=== PATIENT | male | born 1970 | race Caucasian/White ===

== ENCOUNTER → 2018-06-15 12:37 | Outpatient (POV) | payer MEDICARE, OTHER, SELFPAY ==
[2018-06-15 13:00] VITALS: BP 149/79; PULSE 87; RESP 18; O2SAT 98
--- NOTE | 2018-06-15 13:55 | HMH.PMCON ---
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 4 times daily [place] 7.5 mg 1 p.o. 4 times daily we will give him 2 months worth of prescriptions and he can picket labor union the third month in the interim. I will follow-up with the patient in 3 months reassess his symptoms at that time. He has been instructed to call the office if he has any issues prior to his next appointment. Dr. Blum has reviewed this note and agrees with this plan of care. This note was dictated using voice recognition software and may contain errors or omissions HPI - Data of Consult Consult date: 06/15/18 Requesting Physician: Portia Feliciano APRN Primary Care Provider: Lisa Crane - Consult Narrative Reason for consult: Back pain History of present illness: Mr. Gordon is a 47 year old male who is transferring care from our [place] clinic. Patient has chronic low back pain with bilateral leg numbness. He is tried and failed chiropractic therapy, physical therapy, massage therapy. Patient is being treated for fibromyalgia along with peripheral neuropathy. He is currently on oxycodone 10 mg 1 p.o. 4 times daily and [place] 7.5 mg 120 4 times daily. His pain score today is a 5 out of 10. He is doing well on his current medication regimen and denies side effects Khoi reviewed and appropriate we will send in for urine drug screen today. He is also on Zanaflex 4 mg 1 p.o. 3 times daily. Patient is currently on CBD oil and doing well with this. CC: Portia Feliciano APRN [facility] History I have reviewed the patient's past medical history: Yes Medical History: Denies:: Diabetes Mellitus Type 1, Diabetes Mellitus Type 2 Other Surgeries: Yes: Appendectomy, Hernia Repair Amputation: No Fractures: No - *Social History Smoking Status: Never smoker Alcohol Intake: never *Occupational Status:: other Housing: house *Travel in the last 8 weeks: None - Psychiatric History Expresses thoughts of harming self/others: None Suicide Plan Description: No Plan Family Hx:: Unable to obtain Review of Systems - Review of Systems ROS General: no recent weight change, no fever, no sleep disturbances Respiratory: no cough, no shortness of air, no recurring pulmonary infections Cardiovascular/Peripheral Vascular: No chest pain, No palpitations, no edema, no shortness of breath. Gastrointestinal: no incontinence, normal bowel movements reported Genitourinary: no incontinence Musculoskeletal: Back pain, leg pain Psychiatric: normal mood/ affect Neurological: [denies weakness in extremities], [denies balance issues] Meds Home Medications Medication Instructions Recorded Confirmed Type Hydrocodone/Acetaminophen 7.5 mg PO QID 06/15/18 06/15/18 History [Hydrocodone-Acetamin 7.5-325] RX: Oxycodone HCl [Oxycodone (IR) 10 mg PO QID 06/15/18 06/15/18 History 10mg Tab] clonazePAM [Clonazepam] 1 mg PO TID PRN 06/15/18 06/15/18 History Objective Vital signs: Pulse Resp BP Pulse Ox 87 18 149/79 H 98 06/15/18 13:00 06/15/18 13:00 06/15/18 13:00 06/15/18 13:00 Narrative: Physical Exam General: Alert and oriented x3, no acute distress, pleasant and cooperative, [on room air] Lungs: Resps E/U, Symmetrical chest expansion, Eyes: PERRL Musculoskeletal: Flexion and extension of lumbar spine somewhat guarded secondary to pain, deep tendon reflexes normal, strength in upper and lower extremities
--- NOTE | 2018-06-15 13:58 | P.CONS_ITS ---
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 4 times daily [place] 7.5 mg 1 p.o. 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 I will follow-up with the patient in 3 months reassess his symptoms at that time. He has been instructed to call the office if he has any issues prior to his next appointment. Dr. Blum has reviewed this note and agrees with this plan of care. This note was dictated using voice recognition software and may contain errors or omissions HPI - Data of Consult Consult date: 06/15/18 Requesting Physician: Portia Feliciano APRN Primary Care Provider: Lisa Crane - Consult Narrative Reason for consult: Back pain History of present illness: Mr. Gordon is a 47 year old male who is transferring care from our [place] clinic. Patient has chronic low back pain with bilateral leg numbness. He is tried and failed chiropractic therapy, physical therapy, massage therapy. Patient is being treated for fibromyalgia along with peripheral neuropathy. He is currently on oxycodone 10 mg 1 p.o. 4 times daily and [place] 7.5 mg 120 4 times daily. His pain score today is a 5 out of 10. He is doing well on his current medication regimen and denies side effects Khoi reviewed and ap propriate we will send in for urine drug screen today. He is also on Zanaflex 4 mg 1 p.o. 3 times daily. Patient is currently on CBD oil and doing well with this. CC: Portia Feliciano APRN [facility] History I have reviewed the patient's past medical history: Yes Medical History: Denies:: Diabetes Mellitus Type 1, Diabetes Mellitus Type 2 Other Surgeries: Yes: Appendectomy, Hernia Repair Amputation: No Fractures: No - *Social History Smoking Status: Never smoker Alcohol Intake: never *Occupational Status:: other Housing: house *Travel in the last 8 weeks: None - Psychiatric History Expresses thoughts of harming self/others: None Suicide Plan Description: No Plan Family Hx:: Unable to obtain Review of Systems - Review of Systems ROS General: no recent weight change, no fever, no sleep disturbances Respiratory: no cough, no shortness of air, no recurring pulmonary infections Cardiovascular/Peripheral Vascular: No chest pain, No palpitations, no edema, no shortness of breath. Gastrointestinal: no incontinence, normal bowel movements reported Genitourinary: no incontinence Musculoskeletal: Back pain, leg pain Psychiatric: normal mood/ affect Neurological: [denies weakness in extremities], [denies balance issues] Meds Home Medications Medication Instructions Recorded Confirmed Type Hydrocodone/Acetaminophen 7.5 mg PO QID 06/15/18 06/15/18 History [Hydrocodone-Acetamin 7.5-325] RX: Oxycodone HCl [Oxycodone (IR) 10 mg PO QID 06/15/18 06/15/18 History 10mg Tab] clonazePAM [Clonazepam] 1 mg PO TID PRN 06/15/18 06/15/18 History
[2018-06-15 19:12] LABS: Amphetamine/Metha Screen,Urine Negative ng/mL (<1000); Barbiturates Screen,Urine Negative ng/mL (<200); Benzodiazepines Screen,Urine Negative ng/mL (<200); Cannabinoid Screen,Urine Positive ng/mL (<50); Cocaine Screen,Urine Negative ng/mL (<300); Methadone Screen,Urine Negative ng/mL (<300); Opiate Screen,Urine Positive ng/mL (<300); Phencyclidine Screen,Urine Negative ng/mL (<25)
[2018-06-20 16:17] LABS: Codeine Negative (Cutoff=100); Hydrocodone Positive (.); Hydromorphone Positive (.); Morphine Negative (Cutoff=100); Oxycodone (GC/MS) 1755 ng/mL (Cutoff=100)
[2018-06-20 18:08] LABS: Opiates Positive (.); Oxymorphone (GC/MS) 2737 ng/mL (Cutoff=100)
== END ==
PROVIDERS: PCP Internal Medicine; Visit Provider Clinical Nurse Specialist Family Health
DX: M79.7 Fibromyalgia (principal); Z79.899 Other long term (current) drug therapy; G62.9 Polyneuropathy, unspecified; M47.816 Spondylosis without myelopathy or radiculopathy, lumbar region
CPT/HCPCS: 80305; 80361; 80365; 99202; G0480

== ENCOUNTER → 2018-08-17 11:47 | Outpatient (CLI) | payer MEDICARE, OTHER, SELFPAY ==
[2018-08-17 13:28] LABS: Amphetamine/Metha Screen,Urine Negative ng/mL (<1000); Barbiturates Screen,Urine Negative ng/mL (<200); Benzodiazepines Screen,Urine Negative ng/mL (<200); Cannabinoid Screen,Urine Negative ng/mL (<50); Cocaine Screen,Urine Negative ng/mL (<300); Methadone Screen,Urine Negative ng/mL (<300); Opiate Screen,Urine Negative ng/mL (<300); Phencyclidine Screen,Urine Negative ng/mL (<25)
[2018-08-25 19:55] LABS: Opiates Negative (Cutoff=100)
== END ==
PROVIDERS: Visit Provider Clinical Nurse Specialist Family Health
DX: Z79.899 Other long term (current) drug therapy (principal)
CPT/HCPCS: 80305; 80361; 80365; G0480

== ENCOUNTER → 2018-09-14 12:58 | Outpatient (POV) | payer MEDICARE, OTHER, SELFPAY ==
[2018-09-14 13:00] VITALS: BP 133/86; PULSE 85; RESP 18; O2SAT 98; BMI 32.5
--- NOTE | 2018-09-14 13:22 | HMH.PAINSOAP ---
[facility] Pain Management SOAP Note Subjective:: Patient is a pleasant 47-year-old white male who presents today for follow-up for medication refills. Patient has a history of degenerative disc disease of lumbar spine with radicular symptoms. He rates his pain a 7 out of 10 today. He says that the medication does help, giving him the ability to at least get out of the bed. The patient says that he was over 300 pounds prior to taking oral medication management. Patient is also taken CBD oil for which he says it has given him a lot of relief with anxiety and enabling him to sleep well. [facility] #[id number] has been reviewed and is appropriate. The patient currently takes oxycodone 10 mg 4 times daily and [place] 7.5 mg 1 p.o. 4 times daily. He denies any side effects to medications. Patient says that the [place] facility has asked him in the past to come off of his pain patient regimen for various procedures. The patient is concerned that this will have an impact on his medication management with the clinic. Review of Systems General: No recent weight changes, no fever, no sleep disturbances Respiratory: No cough, no shortness of air, no recurring pulmonary infections Cardiovascular/peripheral vascular: No chest pain, no palpitations, no edema, no shortness of breath Gastrointestinal: No new onset incontinence, normal bowel movements reported Genitourinary: No new onset incontinence Musculoskeletal: Back pain Psychiatric: Normal mood/affect Neurological: [Denies weakness in extremities], [denies balance issues] Objective:: Physical exam General: Alert and oriented x3, no acute distress, pleasant and cooperative, [on room air] Lungs: Respirations even and unlabored, symmetrical chest expansion Eyes: PERRL Musculoskeletal: Flexion and extension of lumbar spine somewhat guarded secondary to pain, deep tendon reflexes normal, strength in upper and lower extremities [5/5], normal gait noted Neurological: Speech clear, ampoule filler and sealer equal, no gross sensory deficit Assessment:: Degenerative disc disease lumbar spine with lumbar radiculopathy, fibromyalgia, neuropathy Plan:: We will refill the patient's [place] 7.5 mg p.o. 4 times daily and oxycodone 10 mg p.o. 4 times daily. We will give the patient 2 months worth of medication and he can scrap picker a prescription 1 month in interim. We will see him back in the office in 3 months. Patient has been instructed that he will need to give us a formal verification at [facility] point that [facility] to stop his pain medication management. Patient has been instructed we will need a letter from his provider. The patient understands this. He is been instructed to call the office if he has any concerns prior to his next appointment. Patient has been prescribed a controlled substance after being counseled on the medication, medication safety, and possible side effects. [facility] report has been obtained and reviewed prior to prescription and found to be appropriate. Opioid contract was reviewed and signed by the patient, and that they have agreed to all of the terms set forth by our compliance program. Dr. Blum has reviewed this note and agrees with this plan of care. This note was dictated using voice recognition software and make contain errors or omissions.
--- NOTE | 2018-09-14 13:26 | P.CONS_ITS ---
[facility] Pain Management SOAP Note Subjective:: Patient is a pleasant 47-year-old white male who presents today for follow-up for medication refills. Patient has a history of degenerative disc disease of lumbar spine with radicular symptoms. He rates his pain a 7 out of 10 today. He says that the medication does help, giving him the ability to at least get out of the bed. The patient says that he was over 300 pounds prior to taking oral medication management. Patient is also taken CBD oil for which he says it has given him a lot of relief with anxiety and enabling him to sleep well. [facility] #[id number] has been reviewed and is appropriate. The patient currently takes oxycodone 10 mg 4 times daily and [place] 7.5 mg 1 p.o. 4 times daily. He denies any side effects to medications. Patient says that the [place] facility has asked him in the past to come off of his pain patient regimen for various procedures. The patient is concerned that this will have an impact on his medication management with the clinic. Review of Systems General: No recent weight changes, no fever, no sleep disturbances Respiratory: No cough, no shortness of air, no recurring pulmonary infections Cardiovascular/peripheral vascular: No chest pain, no palpitations, no edema, no shortness of breath Gastrointestinal: No new onset incontinence, normal bowel movements reported Genitourinary: No new onset incontinence Musculoskeletal: Back pain Psychiatric: Normal mood/affect Neurological: [Denies weakness in extremities], [denies balance issues] Objective:: Physical exam General: Alert and oriented x3, no acute distress, pleasant and cooperative, [on room air] Lungs: Respirations even and unlabored, symmetrical chest expansion Eyes: PERRL Musculoskeletal: Flexion and extension of lumbar spine somewhat guarded secondary to pain, deep tendon reflexes normal, strength in upper and lower extremities [5/5], normal gait noted Neurological: Speech clear, carrier washer equal, no gross sensory deficit Assessment:: Degenerative disc disease lumbar spine with lumbar radiculopathy, fibromyalgia, neuropathy Plan:: We will refill the patient's [place] 7.5 mg p.o. 4 times daily and oxycodone 10 mg p.o. 4 times daily. We will give the patient 2 months worth of medication and he can hand picker a prescription 1 month in interim. We will see him back in the office in 3 months. Patient has been instructed that he will need to give us a formal verification at any point that the [facility] asks [facility] to stop his pain medication management. Patient has been instructed we will need a letter from his provider. The patient understands this. He is been instructed to call the office if he has any concerns prior to his next appointment. Patient has been prescribed a controlled substance after being counseled on the medication, medication safety, and possible side effects. [facility] report has been obtained and reviewed prior to prescription and found to be appropriate. Opioid contract was reviewed and signed by the patient, and that they have agreed to all of the terms set forth by our compliance program. Dr. Blum has reviewed this note and agrees with this plan of care. This note was dictated using voice recognition software and make contain errors or omissions.
== END ==
PROVIDERS: PCP Internal Medicine; Visit Provider Clinical Nurse Specialist Family Health
DX: M51.16 Intervertebral disc disorders with radiculopathy, lumbar region (principal); M79.7 Fibromyalgia; G62.9 Polyneuropathy, unspecified
CPT/HCPCS: 99212

== ENCOUNTER → 2018-12-14 13:07 | Outpatient (POV) | payer MEDICARE, OTHER, SELFPAY ==
[2018-12-14 13:23] VITALS: BP 145/85; PULSE 71; RESP 18; O2SAT 98; BMI 30.8
[2018-12-14 15:22] LABS: Amphetamine/Metha Screen,Urine Negative ng/mL (<1000); Barbiturates Screen,Urine Negative ng/mL (<200); Benzodiazepines Screen,Urine Negative ng/mL (<200); Cannabinoid Screen,Urine Negative ng/mL (<50); Cocaine Screen,Urine Negative ng/mL (<300); Methadone Screen,Urine Negative ng/mL (<300); Opiate Screen,Urine Positive ng/mL (<300); Phencyclidine Screen,Urine Negative ng/mL (<25)
--- NOTE | 2018-12-15 10:15 | HMH.PAINSOAP ---
[facility] Pain Management SOAP Note Subjective:: Patient is a pleasant 48-year-old white male who presents today for follow-up and medication refills. Patient has a history of degenerative disc disease lumbar spine with lumbar radiculopathy he rates his pain today 7 out of 10 which is his baseline. He says the medication does help up to 80%. He is currently on oxycodone 10 mg 1 p.o. 4 times daily along with [place] 7.5 mg 1 p.o. 4 times daily. [facility] #[id number] reviewed and appropriate. ROS General: no recent weight change, no fever, no sleep disturbances Respiratory: no cough, no shortness of air, no recurring pulmonary infections Cardiovascular/Peripheral Vascular: No chest pain, No palpitations, no edema, no shortness of breath. Gastrointestinal: no incontinence, normal bowel movements reported Genitourinary: no incontinence Musculoskeletal: Back pain Psychiatric: normal mood/ affect, [denies depression], [denies anxiety] Neurological: [denies weakness in extremities], [denies balance issues] Objective:: Physical Exam General: Alert and oriented x3, no acute distress, pleasant and cooperative, [on room air] Lungs: Resps E/U, Symmetrical chest expansion, [CTA bilateral] Eyes: PERRL Musculoskeletal: Flexion and extension of lumbar spine somewhat guarded secondary to pain, deep tendon reflexes normal, strength in upper and lower extremities [5/5], [abnormal gait noted] Neurological: speech clear, vice president process equal, no gross sensory deficits Assessment:: Degenerative disc disease lumbar spine with lumbar radiculopathy, fibromyalgia, neuropathy Plan:: We will continue the patient on oxycodone 10 mg 1 p.o. 4 times daily and [place] 7.5 mg 1 p.o. 4 times daily will give him 2 months worth of medication he can supervisor opening and picking the third month in the interim. I will see him back in 3 months reassess his symptoms at that time. Patient has been prescribed a controlled substance after being counseled on the medication, medication safety, and possible side effects. [facility] report has been obtained and reviewed prior to prescription and found to be appropriate. Opioid contract was reviewed and signed by the patient, and that they have agreed to all of the terms set forth by our compliance program. Dr. Blum has reviewed this note and agrees with this plan of care. This note was dictated using voice recognition software and may contain errors or omissions [facility] History I have reviewed the patient's past medical history: Yes Medical History: Denies:: Diabetes Mellitus Type 1, Diabetes Mellitus Type 2 *Have you ever received a pneumonia vaccine?: Yes *Have you received a flu vaccine this season?: Yes Other Surgeries: Yes: Appendectomy, Hernia Repair Amputation: No Fractures: No - *Social History Smoking Status: Never smoker Alcohol Intake: never *Occupational Status:: other Housing: house *Travel in the last 8 weeks: None Family Hx:: Unable to obtain
--- NOTE | 2018-12-15 10:18 | P.CONS_ITS ---
[facility] Pain Management SOAP Note Subjective:: Patient is a pleasant 48-year-old white male who presents today for follow-up and medication refills. Patient has a history of degenerative disc disease lumbar spine with lumbar radiculopathy he rates his pain today 7 out of 10 which is his baseline. He says the medication does help up to 80%. He is currently on oxycodone 10 mg 1 p.o. 4 times daily along with [place] 7.5 mg 1 p.o. 4 times daily. [facility] #[id number] reviewed and appropriate. ROS General: no recent weight change, no fever, no sleep disturbances Respiratory: no cough, no shortness of air, no recurring pulmonary infections Cardiovascular/Peripheral Vascular: No chest pain, No palpitations, no edema, no shortness of breath. Gastrointestinal: no incontinence, normal bowel movements reported Genitourinary: no incontinence Musculoskeletal: Back pain Psychiatric: normal mood/ affect, [denies depression], [denies anxiety] Neurological: [denies weakness in extremities], [denies balance issues] Objective:: Physical Exam General: Alert and oriented x3, no acute distress, pleasant and cooperative, [on room air] Lungs: Resps E/U, Symmetrical chest expansion, [CTA bilateral] Eyes: PERRL Musculoskeletal: Flexion and extension of lumbar spine somewhat guarded secondary to pain, deep tendon reflexes normal, strength in upper and lower extremities [5/5], [abnormal gait noted] Neurological: speech clear, hand twister equal, no gross sensory deficits Assessment:: Degenerative disc disease lumbar spine with lumbar radiculopathy, fibromyalgia, neuropathy Plan:: We will continue the patient on oxycodone 10 mg 1 p.o. 4 times daily and [place] 7 .5 mg 1 p.o. 4 times daily will give him 2 months worth of medication he can picker and sorter load and unload the third month in the interim. I will see him back in 3 months reassess his symptoms at that time. Patient has been prescribed a controlled substance after being counseled on the medication, medication safety, and possible side effects. [facility]IA[facility] report has been obtained and reviewed prior to prescription and found to be appropriate. Opioid contract was reviewed and signed by the patient, and that they have agreed to all of the terms set forth by our compliance program. Dr. Blum has reviewed this note and agrees with this plan of care. This note was dictated using voice recognition software and may contain errors or omissions [facility] History I have reviewed the patient's past medical history: Yes Medical History: Denies:: Diabetes Mellitus Type 1, Diabetes Mellitus Type 2 *Have you ever received a pneumonia vaccine?: Yes *Have you received a flu vaccine this season?: Yes Other Surgeries: Yes: Appendectomy, Hernia Repair Amputation: No Fractures: No - *Social History Smoking Status: Never smoker Alcohol Intake: never *Occupational Status:: other Housing: house *Travel in the last 8 weeks: None Family Hx:: Unable to obtain
[2018-12-20 19:09] LABS: Codeine Negative (Cutoff=100); Hydrocodone Positive (.); Hydromorphone Positive (.); Morphine Negative (Cutoff=100); Oxycodone (GC/MS) 1301 ng/mL (Cutoff=100)
[2018-12-21 01:23] LABS: Opiates Positive (.); Oxymorphone (GC/MS) 2508 ng/mL (Cutoff=100)
== END ==
PROVIDERS: Visit Provider Clinical Nurse Specialist Family Health
DX: M51.16 Intervertebral disc disorders with radiculopathy, lumbar region (principal); M79.7 Fibromyalgia; G62.9 Polyneuropathy, unspecified; Z79.899 Other long term (current) drug therapy
CPT/HCPCS: 80305; 80361; 80365; 99212; G0480

== ENCOUNTER → 2019-02-15 11:40 | Outpatient (POV) | payer MEDICARE, OTHER, SELFPAY ==
[2019-02-15 11:52] VITALS: BP 155/94; PULSE 89; RESP 18; O2SAT 98; BMI 30.2
--- NOTE | 2019-02-15 12:06 | HMH.PAINSOAP ---
[facility] Pain Management SOAP Note Subjective:: Patient is a pleasant 48-year-old white male who presents today for follow-up and medication refills. Patient has a history of degenerative disc disease lumbar spine with lumbar radiculopathy. Patient rates his pain 8 out of 10. Patient medication helps him up to 80%. He is also having occipital headaches. He has an appointment with a neurologist today. He is currently on oxycodone 10 mg 1 p.o. 4 times daily along with [place] 7.5 mg 1 p.o. 4 times daily. [facility] #[id number] reviewed and appropriate. Urine drug screens have been appropriate. Patient recently had a pill count that was appropriate. ROS General: no recent weight change, no fever, no sleep disturbances Respiratory: no cough, no shortness of air, no recurring pulmonary infections Cardiovascular/Peripheral Vascular: No chest pain, No palpitations, no edema, no shortness of breath. Gastrointestinal: no new onset incontinence, normal bowel movements reported Genitourinary: no new onset incontinence Musculoskeletal: Back pain, leg pain Psychiatric: normal mood/ affect Neurological: [denies new onset weakness in extremities], [denies new onset balance issues] Objective:: Physical Exam General: Alert and oriented x3, no acute distress, pleasant and cooperative, [on room air] Lungs: Resps E/U, Symmetrical chest expansion, Eyes: PERRL Musculoskeletal: Flexion and extension of lumbar spine somewhat guarded secondary to pain, deep tendon reflexes normal, strength in upper and lower extremities [5/5], [abnormal gait noted] Neurological: speech clear, director of teenage activities equal, no gross sensory deficits Assessment:: Degenerative disc disease lumbar spine with lumbar radiculopathy, fibromyalgia, neuropathy Plan:: We will refill his oxycodone 10 mg 1 p.o. 4 times daily along with his [place] 7.5 mg 1 p.o. 4 times daily we will give him 2 months worth of medication and he can picker tender the third month in the interim or anybody on his pickup list. We will see him back in 3 months reassess his symptoms at that time he is been instructed to call the office if he has any issues prior to his next appointment. Patient may need an occipital nerve block in the future he is to call our office if he would like to schedule this. Patient has been prescribed a controlled substance after being counseled on the medication, medication safety, and possible side effects. [facility] report has been obtained and reviewed prior to prescription and found to be appropriate. Opioid contract was reviewed and signed by the patient, and that they have agreed to all of the terms set forth by our compliance program. Dr. Blum has reviewed this note and agrees with this plan of care. This note was dictated using voice recognition software and may contain errors or omissions [facility] History I have reviewed the patient's past medical history: Yes Medical History: Denies:: Diabetes Mellitus Type 1, Diabetes Mellitus Type 2 *Have you ever received a pneumonia vaccine?: Yes *Have you received a flu vaccine this season?: Yes Other Surgeries: Yes: Appendectomy, Hernia Repair Amputation: No Fractures: No - *Social History Smoking Status: Never smoker Alcohol Intake: never *Occupational Status:: other Housing: house *Travel in the last 8 weeks: None Family Hx:: Unable to obtain
--- NOTE | 2019-02-15 12:09 | P.CONS_ITS ---
[facility] Pain Management SOAP Note Subjective:: Patient is a pleasant 48-year-old white male who presents today for follow-up and medication refills. Patient has a history of degenerative disc disease lumbar spine with lumbar radiculopathy. Patient rates his pain 8 out of 10. Patient medication helps him up to 80%. He is also having occipital headaches. He has an appointment with a neurologist today. He is currently on oxycodone 10 mg 1 p.o. 4 times daily along with [place] 7.5 mg 1 p.o. 4 times daily. [facility] #[id number] reviewed and appropriate. Urine drug screens have been appropriate. Patient recently had a pill count that was appropriate. ROS General: no recent weight change, no fever, no sleep disturbances Respiratory: no cough, no shortness of air, no recurring pulmonary infections Cardiovascular/Peripheral Vascular: No chest pain, No palpitations, no edema, no shortness of breath. Gastrointestinal: no new onset incontinence, normal bowel movements reported Genitourinary: no new onset incontinence Musculoskeletal: Back pain, leg pain Psychiatric: normal mood/ affect Neurological: [denies new onset weakness in extremities], [denies new onset balance issues] Objective:: Physical Exam General: Alert and oriented x3, no acute distress, pleasant and cooperative, [on room air] Lungs: Resps E/U, Symmetrical chest expansion, Eyes: PERRL Musculoskeletal: Flexion and extension of lumbar spine somewhat guarded secondary to pain, deep tendon reflexes normal, strength in upper and lower extremities [5/5], [abnormal gait noted] Neurological: speech clear, 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 4 times daily along with his [place] 7.5 mg 1 p.o. 4 times daily we will give him 2 months worth of medication and he can draft roller picker the third month in the interim or anybody on his pickup list. We will see him back in 3 months reassess his symptoms at that time he is been instruct ed to call the office if he has any issues prior to his next appointment. Patient may need an occipital nerve block in the future he is to call our office if he would like to schedule this. Patient has been prescribed a controlled substance after being counseled on the medication, medication safety, and possible side effects. TIANA report has been obtained and reviewed prior to prescription and found to be appropriate. Opioid contract was reviewed and signed by the patient, and that they have agreed to all of the terms set forth by our compliance program. Dr. Blum has reviewed this note and agrees with this plan of care. This note was dictated using voice recognition software and may contain errors or omissions [facility] History I have reviewed the patient's past medical history: Yes Medical History: Denies:: Diabetes Mellitus Type 1, Diabetes Mellitus Type 2 *Have you ever received a pneumonia vaccine?: Yes *Have you received a flu vaccine this season?: Yes Other Surgeries: Yes: Appendectomy, Hernia Repair Amputation: No Fractures: No - *Social History Smoking Status: Never smoker Alcohol Intake: never *Occupational Status:: other Housing: house *Travel in the last 8 weeks: None Family Hx:: Unable to obtain
[2019-02-15 21:18] LABS: Amphetamine/Metha Screen,Urine Negative ng/mL (<1000); Barbiturates Screen,Urine Negative ng/mL (<200); Benzodiazepines Screen,Urine Negative ng/mL (<200); Cannabinoid Screen,Urine Negative ng/mL (<50); Cocaine Screen,Urine Negative ng/mL (<300); Methadone Screen,Urine Negative ng/mL (<300); Opiate Screen,Urine Positive ng/mL (<300); Phencyclidine Screen,Urine Negative ng/mL (<25)
[2019-02-21 15:35] LABS: Codeine Negative (Cutoff=100); Hydrocodone Positive (.); Hydromorphone Positive (.); Morphine Negative (Cutoff=100); Oxycodone (GC/MS) 275 ng/mL (Cutoff=100)
[2019-02-21 23:16] LABS: Opiates Positive (.); Oxymorphone (GC/MS) 465 ng/mL (Cutoff=100)
== END ==
PROVIDERS: PCP Internal Medicine; Visit Provider Clinical Nurse Specialist Family Health
DX: M51.16 Intervertebral disc disorders with radiculopathy, lumbar region (principal); M79.7 Fibromyalgia; G62.9 Polyneuropathy, unspecified; Z79.899 Other long term (current) drug therapy
CPT/HCPCS: 80305; 80361; 80365; 99212; G0480

== ENCOUNTER → 2019-04-19 13:01 | Outpatient (POV) | payer MEDICARE, OTHER, SELFPAY ==
[2019-04-19 13:13] VITALS: BP 168/98; PULSE 77; RESP 18; O2SAT 99; BMI 33.2
--- NOTE | 2019-04-19 13:36 | P.CONS_ITS ---
[facility] Pain Management SOAP Note Subjective:: Patient is a pleasant 48-year-old white male who presents today for medication refills. He has a history of degenerative disc disease lumbar spine with lumbar radiculopathy. He rates his pain today a 6 out of 10. Patient states his medication helps him up to 80%. 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 Patient is going to be scheduled for surgery he is can let us know when this is. He is currently on oxycodone 10 mg 1 p.o. 4 times daily daily along with [place] 7.5 mg 1 p.o. 4 times daily. Tiana #[id number] reviewed and appropriate. Urine drug screens have been appropriate. ROS General: no recent weight change, no fever, no sleep disturbances Respiratory: no cough, no shortness of air, no recurring pulmonary infections Cardiovascular/Peripheral Vascular: No chest pain, No palpitations, no edema, no shortness of breath. Gastrointestinal: no new onset incontinence, normal bowel movements reported Genitourinary: no new onset incontinence Musculoskeletal: Back pain, headache Psychiatric: normal mood/ affect Neurological: [denies new onset weakness in extremities], [denies new onset balance issues] Objective:: Physical Exam General: Alert and oriented x3, no acute distress, pleasant and cooperative, [on room air] Lungs: Resps E/U, Symmetrical chest expansion, Eyes: PERRL Musculoskeletal: Flexion and extension of lumbar spine somewhat guarded secondary to pain, deep tendon reflexes normal, strength in upper and lower extremities [5/5], [abnormal gait noted] Neurological: speech clear, 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 4 times daily along with his [place] 7.5 mg 1 p.o. 4 times daily. We will give him 2 months worth of medication and he can picker packer the third month in the interim. I will follow-up with the patient in 3 months reassess his symptoms at that time he has been instructed to call the office if he has any issues prior to his next appointment. Patient has been prescribed a controlled substance after being counseled on the medication, medication safety, and possible side effects. TIANA report has been obtained and reviewed prior to prescription and found to be appropriate. Opioid contract was reviewed and signed by the patient, and that they have agreed to all of the terms set forth by our compliance program. Dr. Blum has reviewed this note and agrees with this plan of care. This note was dictated using voice recognition software and may contain errors or omissions [facility] History I have reviewed the patient's past medical history: Yes Medical History: Denies:: Diabetes Mellitus Type 1, Diabetes Mellitus Type 2 *Have you ever received a pneumonia vaccine?: Yes *Have you received a flu vaccine this season?: Yes Other Surgeries: Yes: Appendectomy, Hernia Repair Amputation: No Fractures: No - *Social History Smoking Status: Never smoker Alcohol Intake: never *Occupational Status:: other Housing: house *Travel in the last 8 weeks: None Family Hx:: Unable to obtain
== END ==
PROVIDERS: PCP Internal Medicine; Visit Provider Clinical Nurse Specialist Family Health
DX: M51.16 Intervertebral disc disorders with radiculopathy, lumbar region (principal); M79.7 Fibromyalgia; G62.9 Polyneuropathy, unspecified
CPT/HCPCS: 99212

== ENCOUNTER → 2019-07-12 13:22 | Outpatient (POV) | payer MEDICARE, OTHER, SELFPAY ==
--- NOTE | 2019-07-13 07:53 | HMH.VVPMSO ---
[facility] PM Virtual Visit SOAP Consent for virtual visit:: With the recent concerns about the COVID-19, we are trying to minimize exposure to you by shifting to telehealth appointments whenever possible. It restricts me from seeing you in person, but the trade off is protecting you during this pandemic. Can you see and hear me okay, and do you consent to this option? If not, I would be happy to see if we can reschedule your appointment in the future, when feasible. Has patient consented to this virtual visit?: Yes Subjective:: Patient is a pleasant 48-year-old white male who presents today for medication refills. He has a history of degenerative disc disease lumbar spine with lumbar radiculopathy. He rates his pain today a 5 out of 10 which is his baseline. He states his medication helps him up to 80%. He is currently on oxycodone 10 mg 1 p.o. 4 times daily and [place] 7.5 mg 1 p.o. 4 times daily. His Tiana was reviewed and appropriate. His urine drug screens have been appropriate in the past. ROS General: no recent weight change, no fever, no sleep disturbances Respiratory: no cough, no shortness of air, no recurring pulmonary infections Cardiovascular/Peripheral Vascular: No chest pain, No palpitations, no edema, no shortness of breath. Gastrointestinal: no new onset incontinence, normal bowel movements reported Genitourinary: no new onset incontinence Musculoskeletal: Back pain and headaches Psychiatric: normal mood/ affect, Neurological: [denies new onset weakness in extremities], [denies new onset balance issues] Objective:: Physical exam: Constitutional: Healthy appearing, well-developed, alert, in no acute distress Psychiatric: Judgment and insight intact, Alert and oriented x4 Mood and affect: Mood normal, affect appropriate Head and face: Inspection: Normocephalic atraumatic, extraocular movement intact Respiratory: Breathing nonlabored, nondyspneic Cardiovascular: No cyanosis, clubbing, or edema observed Skin: Head and neck: Skin with no lesions or rash observed Gait: Able to walk without assistive device: Able to heel and toe walk Neurologic: Sensation grossly intact per patient Musculoskeletal: Slightly decreased range of motion lumbar spine noted on video Assessment:: Degenerative disc disease lumbar spine with lumbar radiculopathy, fibromyalgia, neuropathy Plan:: We will refill the oxycodone 10 mg 1 p.o. 4 times daily along with [place] 7.5 mg 1 p.o. 4 times daily will give him 2 months worth of medication he can coal picker 1/3-month in the interim. I will follow-up with the patient in 3 months reassess his symptoms at that time he is been instructed to call the office if he has any issues prior to his next appointment. Patient has been prescribed a controlled substance after being counseled on the medication, medication safety, and possible side effects. TIANA report has been obtained and reviewed prior to prescription and found to be appropriate. Opioid contract was reviewed and signed by the patient, and that they have agreed to all of the terms set forth by our compliance program. Dr. Blum has reviewed this note and agrees with this plan of care. This note was dictated using voice recognition software and may contain errors or omissions this encounter was performed as a telemedicine visit via secure 2 way video and audio to minimize risk and transmission of Covid-19. The patient and we understand the limitations of a telemedicine visit including inability to check reflexes, possibly missing subtle findings on physical exam. Alternative options were presented to the patient and the patient elected to proceed with the visit. We specifically discussed risk factors for Covid-19 including age, heart or lung disease, diabetes, immunosuppression and travel. We also discussed that NSAIDs may worsen Covid-19 infection symptoms and that they should not be used to treat Covid-19 symptoms. Patient was also informed that corticoste
== END ==
PROVIDERS: Visit Provider Clinical Nurse Specialist Family Health
DX: M51.16 Intervertebral disc disorders with radiculopathy, lumbar region (principal); M79.7 Fibromyalgia; G62.9 Polyneuropathy, unspecified
CPT/HCPCS: 99212

== ENCOUNTER → 2019-10-11 10:47 | Outpatient (POV) | payer MEDICARE, OTHER, SELFPAY ==
[2019-10-11 11:20] VITALS: BP 145/88; PULSE 85; RESP 18; O2SAT 98; BMI 33.2
--- NOTE | 2019-10-11 11:29 | P.CONS_ITS ---
[facility] Pain Management SOAP Note Subjective:: Patient is a 49-year-old white male who presents today for medication refill. He has been treated for low back pain with lumbar radiculopathy symptoms. Patient rates his pain a 7 out of 10 today. He says that he does continue to have pain, however, patient says at least I am still alive . Patient says he is caring for his sick mother that has breast cancer. He says he does have difficulty getting to the clinic when he is at her house in [facility]. Patient has requested a 24-hour window for his drug screens and medication notes. Patient understands that this is a breech in the contract and not something that we can do within the clinic. He is currently managed with [place] 7.5 mg 1 tablet p.o. 4 times daily and oxycodone 10 mg 1 tablet p.o. 4 times daily. He denies any side effects to the medication. His Khoi #[id number] has been reviewed and is appropriate. His morphine equivalent is 90. Review of Systems General: No recent weight changes, no fever, no sleep disturbances Respiratory: No cough, no shortness of air, no recurring pulmonary infections Cardiovascular/peripheral vascular: No chest pain, no palpitations, no edema, no shortness of breath Gastrointestinal: No new onset incontinence, normal bowel movements reported Genitourinary: No new onset incontinence Musculoskeletal: Low back pain Psychiatric: Normal mood/affect Neurological: [Denies weakness in extremities], [denies balance issues] Objective:: Physical exam General: Alert and oriented x3, no acute distress, pleasant and cooperative, [on room air] Lungs: Respirations even and unlabored, symmetrical chest expansion Eyes: PERRL Musculoskeletal: Flexion and extension of lumbar spine somewhat guarded secondary to pain, deep tendon reflexes normal, strength in upper and lower extremities [5/5], [abnormal gait noted] Neurological: Speech clear, 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 4 times daily and oxycodone 10 mg 1 tablet p.o. 4 times daily. We will give him 2 months worth medication he can flower picker his third month in the interim. He has been i nstructed to contact clinic if he has any concerns before his next appointment. The patient and I specifically discussed risk factors for COVID19. These risks include, but are not limited to age greater than 60, heart or lung disease, diabetes, immunosuppression, and travel. We also discussed NSAIDs may worsen COVID19 infection or symptoms. Patient should not use NSAIDs to treat COVID19 signs or symptoms. Patient was also informed that any type of corticosteroid of any form (oral or injection) will decrease the patient's immune system response and may increase the likelihood of COVID19 infection and symptoms. Dr. Blum has reviewed this note and agrees with this plan of care. This note was dictated using voice recognition software and make contain errors or omissions. [facility] History I have reviewed the patient's past medical history: Yes Medical History: Denies:: Diabetes Mellitus Type 1, Diabetes Mellitus Type 2 *Have you ever received a pneumonia vaccine?: Yes *Have you received a flu vaccine this season?: Yes Other Surgeries: Yes: Appendectomy, Hernia Repair Amputation: No Fractures: No - *Social History Smoking Status: Never smoker Alcohol Intake: never *Occupational Status:: other Housing: house *Travel in the last 8 weeks: None Family Hx:: Unable to obtain
== END ==
PROVIDERS: PCP Family Medicine; Visit Provider Clinical Nurse Specialist Family Health
DX: M51.16 Intervertebral disc disorders with radiculopathy, lumbar region (principal)
CPT/HCPCS: 99212

== ENCOUNTER → 2020-01-10 11:06 | Outpatient (POV) | payer MEDICARE, OTHER, SELFPAY ==
[2020-01-10 11:25] VITALS: BP 135/85; PULSE 77; RESP 18; O2SAT 98; BMI 32.3
--- NOTE | 2020-01-10 11:42 | P.CONS_ITS ---
[facility] Pain Management SOAP Note Subjective:: Patient is a pleasant 49-year-old white male who presents today for medication refills. He is being treated for low back pain with lumbar radiculopathy symptoms he rates his pain a 7 out of 10 today which is his baseline. Patient is currently on oxycodone 10 mg one tab p.o. 4 times daily and [place] 7.5 mg one tab p.o. 4 times daily. Tiana #[id number] reviewed and appropriate. His current morphine equivalent is ninety. Patient recently had pituitary surgery along with cataract surgery. Patient denies side effects to his medication. ROS General: no recent weight change, no fever, no sleep disturbances Respiratory: no cough, no shortness of air, no recurring pulmonary infections Cardiovascular/Peripheral Vascular: No chest pain, No palpitations, no edema, no shortness of breath. Gastrointestinal: no new onset incontinence, normal bowel movements reported Genitourinary: no new onset incontinence Musculoskeletal: Back pain, leg pain Psychiatric: normal mood/ affect Neurological: [denies new onset weakness in extremities], [denies new onset balance issues] Objective:: Physical Exam General: Alert and oriented x3, no acute distress, pleasant and cooperative, [on room air] Lungs: Resps E/U, Symmetrical chest expansion, Eyes: PERRL Musculoskeletal: Flexion and extension of lumbar spine somewhat guarded secondary to pain, deep tendon reflexes normal, strength in upper and lower extremities [5/5], antalgic gait noted Neurological: speech clear, director data equal, no gross sensory deficits Assessment:: Degenerative disc disease lumbar spine with lumbar radiculopathy symptoms, Plan:: We will schedule the patient for a follow-up in 3 months. We will continue his [place] 7.5 mg one tab p.o. 4 times daily and oxycodone 10 mg one tab p.o. 4 times daily. Patient would like to switch back to [facility] pharmacy the next time he gets filled. Patient's been instructed to contact the clinic if he has any issues prior to his next appointment. Patient has been prescribed a controlled substance after being counseled on the medication, medication safety, and possible side effects. TIANA report has been obtained and reviewed prior to prescription and found to be appropriate. Opioid contract was reviewed and signed by the patient, and that they have agreed to all of the terms set forth by our compliance program. Dr. Blum has reviewed this note and agrees with this plan of care. This note was dictated using voice recognition software and may contain errors or omissions [facility] History I have reviewed the patient's past medical history: Yes Medical History: Denies:: Diabetes Mellitus Type 1, Diabetes Mellitus Type 2 *Have you ever received a pneumonia vaccine?: Yes *Have you received a flu vaccine this season?: Yes Other Surgeries: Yes: Appendectomy, Hernia Repair Amputation: No Fractures: No - *Social History Smoking Status: Never smoker Alcohol Intake: never *Occupational Status:: other Housing: house *Travel in the last 8 weeks: None Family Hx:: Unable to obtain
== END ==
PROVIDERS: PCP Internal Medicine; Visit Provider Clinical Nurse Specialist Family Health
DX: M51.16 Intervertebral disc disorders with radiculopathy, lumbar region (principal)
CPT/HCPCS: 99212

== ENCOUNTER → 2020-04-10 09:08 | Outpatient (POV) | payer MEDICARE, OTHER, SELFPAY ==
[2020-04-10 09:31] VITALS: BP 145/64; PULSE 79; RESP 18; TEMP 36.2; O2SAT 98; BMI 33.7
--- NOTE | 2020-04-10 09:59 | HMH.PAINSOAP ---
[facility] Pain Management SOAP Note Subjective:: Patient is a 49-year-old white male who presents today for medication refills. He is being treated for low back pain with lumbar radiculopathy symptoms. He rates his pain an 8 out of 10 today. Patient is currently on oxycodone 10 mg 1 p.o. 4 times daily [place] 7.5 mg 1 p.o. 4 times daily. Tiana #[id number] reviewed and appropriate. Patient had the wrong medication sent in at his last refill. Patient was called in oxycodone 5 and hydrocodone 5. I discussed with him that he can take 2 of the oxycodone and 1-1/2 of the hydrocodone and we will get new prescription sent in for him. Patient denies side effects to the medication. Patient is still healing from his pituitary surgery. Patient is having hormonal issues in regards to this. ROS General: no recent weight change, no fever, no sleep disturbances Respiratory: no cough, no shortness of air, no recurring pulmonary infections Cardiovascular/Peripheral Vascular: No chest pain, No palpitations, no edema, no shortness of breath. Gastrointestinal: no new onset incontinence, normal bowel movements reported Genitourinary: no new onset incontinence Musculoskeletal: Back pain, leg pain Psychiatric: normal mood/ affect Neurological: [denies new onset weakness in extremities], [denies new onset balance issues] Objective:: Physical Exam General: Alert and oriented x3, no acute distress, pleasant and cooperative, [on room air] Lungs: Resps E/U, Symmetrical chest expansion, Eyes: PERRL Musculoskeletal: Flexion and extension of lumbar spine somewhat guarded secondary to pain, deep tendon reflexes normal, strength in upper and lower extremities [5/5], antalgic gait noted Neurological: speech clear, director of services equal, no gross sensory deficits Assessment:: Degenerative disc disease lumbar spine lumbar radiculopathy symptoms Plan:: We will continue his oxycodone 10 mg 1 p.o. 4 times daily and [place] 7.5 mg 1 p.o. 4 times daily. His current morphine equivalent is 90. I will follow-up with him in 3 months reassess his symptoms at that time he has been instructed to call the office if he has any issues prior to his next appointment. Patient has been prescribed a controlled substance after being counseled on the medication, medication safety, and possible side effects. TIANA report has been obtained and reviewed prior to prescription and found to be appropriate. Opioid contract was reviewed and signed by the patient, and that they have agreed to all of the terms set forth by our compliance program. Dr. Blum has reviewed this note and agrees with this plan of care. This note was dictated using voice recognition software and may contain errors or omissions [facility] History I have reviewed the patient's past medical history: Yes Medical History: Denies:: Diabetes Mellitus Type 1, Diabetes Mellitus Type 2 *Have you ever received a pneumonia vaccine?: Yes *Have you received a flu vaccine this season?: Yes Other Surgeries: Yes: Appendectomy, Hernia Repair Amputation: No Fractures: No - *Social History Smoking Status: Never smoker Alcohol Intake: never *Occupational Status:: other Housing: house *Travel in the last 8 weeks: None Family Hx:: Unable to obtain
== END ==
PROVIDERS: Visit Provider Clinical Nurse Specialist Family Health
DX: M51.16 Intervertebral disc disorders with radiculopathy, lumbar region (principal)
CPT/HCPCS: 99212; G0463

== ENCOUNTER → 2020-07-10 10:48 | Outpatient (POV) | payer MEDICARE, OTHER, SELFPAY ==
--- NOTE | 2020-07-10 11:58 | P.CONS_ITS ---
[facility] Pain Management SOAP Note Subjective:: She is a pleasant 49-year-old white male who presents today for medication refills. Patient is being treated for low back pain with lumbar radiculopathy symptoms. He rates his pain today 7 out of 10. He is currently on oxycodone 10 mg 1 p.o. 4 times a day [place] 7.5 mg 1 p.o. 4 times a day. He denies side effects to his medication and states that they worked very well for him Tiana #[id number] reviewed and appropriate. Drug screens have been appropriate. ROS General: no recent weight change, no fever, no sleep disturbances Respiratory: no cough, no shortness of air, no recurring pulmonary infections Cardiovascular/Peripheral Vascular: No chest pain, No palpitations, no edema, no shortness of breath. Gastrointestinal: no new onset incontinence, normal bowel movements reported Genitourinary: no new onset incontinence Musculoskeletal: Back pain, leg pain Psychiatric: normal mood/ affect, Neurological: [denies new onset weakness in extremities], [denies new onset balance issues] Objective:: Physical Exam General: Alert and oriented x3, no acute distress, pleasant and cooperative, [on room air] Lungs: Resps E/U, Symmetrical chest expansion, Eyes: PERRL Musculoskeletal: Flexion and extension of lumbar spine somewhat guarded secondary to pain, deep tendon reflexes normal, strength in upper and lower extremities [5/5], slightly antalgic gait noted Neurological: speech clear, model maker plastic equal, no gross sensory deficits Assessment:: Degenerative disc disease lumbar spine lumbar radiculopathy, back pain Plan:: We will continue the patient's oxycodone 10 mg 1 p.o. 4 times daily and [place] 7.5 mg 1 p.o. 4 times daily. He denies side effects to his medication. Patient's been instructed to call the office if he has any issues prior to his next appointment. We will see him back in 3 months. Patient has been prescribed a controlled substance after being counseled on the medication, medication safety, and possible side effects. TIANA report has been obtained and reviewed prior to prescription and found to be appropriate. Opioid contract was reviewed and signed by the patient, and that they have agreed to all of the terms set forth by our compliance program. Dr. Blum has reviewed this note and agrees with this plan of care. This note was dictated using voice recognition software and may contain errors or omissions [facility] History I have reviewed the patient's past medical history: Yes Medical History: Denies:: Diabetes Mellitus Type 1, Diabetes Mellitus Type 2 *Have you ever received a pneumonia vaccine?: Yes *Have you received a flu vaccine this season?: Yes Other Surgeries: Yes: Appendectomy, Hernia Repair Amputation: No Fractures: No - *Social History Smoking Status: Never smoker Alcohol Intake: never *Occupational Status:: other Housing: house *Travel in the last 8 weeks: None Family Hx:: Unable to obtain
[2020-07-10 12:41] VITALS: BP 139/79; PULSE 85; RESP 18; O2SAT 99; BMI 32.3
== END ==
PROVIDERS: Visit Provider Clinical Nurse Specialist Family Health
DX: M51.16 Intervertebral disc disorders with radiculopathy, lumbar region (principal)
CPT/HCPCS: 99212; G0463

== ENCOUNTER → 2020-10-09 10:27 | Outpatient (POV) | payer MEDICARE, OTHER, SELFPAY ==
[2020-10-09 10:41] VITALS: BP 141/99; PULSE 68; RESP 18; O2SAT 99; BMI 34.2
--- NOTE | 2020-10-09 11:33 | HMH.PAINSOAP ---
[facility] Pain Management SOAP Note Subjective:: Patient is a 50-year-old white male who presents today for follow-up and medication refills. The patient has been treated in the clinic for degenerative disc disease lumbar spine with lumbar radiculopathy symptoms and chronic back pain. Patient has been managed in the clinic with oxycodone 10 mg 1 tablet p.o. 4 times daily and [place] 7.5 mg 1 tablet p.o. 4 times daily. Patient has not had any recent injective therapy. Dr. Oliveros did review the patient's medications and does have concern for the patient due t no recent interventional therapies and patient is taking short acting medications x2. Patient has [place] 7.5 mg 1 tablet p.o. 4 times daily and oxycodone 10 mg 1 tablet p.o. 4 times daily. After discussion with the patient today, he says that he has tried long acting medications which have not been beneficial for him. He says he has been on this medication regimen for approximately 6 years and does not want to change the regimen. I have expressed concerns with the patient that he will need to undergo interventional therapies. He does continue with physical therapy monthly with [facility] according to the patient. Patient's pain is a 7 out of 10 today. He says that he would like to discuss his options with Dr. Sumner. He has been advised that he will need to do a follow-up visit with Dr blum or Dr. Oliveros to discuss his medication regimen. Patient is not open to injective therapy at this time. He has tried injections in the past and they have not been beneficial for him. Review of Systems General: No recent weight changes, no fever, no sleep disturbances Respiratory: No cough, , no recurring pulmonary infections Cardiovascular/peripheral vascular: No chest pain, no palpitations, [no edema], no shortness of breath Gastrointestinal: No new onset incontinence, normal bowel movements reported Genitourinary: No new onset incontinence Musculoskeletal: [] Chronic low back pain Psychiatric: [Normal mood/affect] Neurological: [Denies weakness in extremities], [denies balance issues] Objective:: Physical exam General: Alert and oriented x3, no acute distress, pleasant and cooperative, [on room air] Lungs: Respirations even and unlabored, symmetrical chest expansion Eyes: PERRL Musculoskeletal: Flexion and extension of [] lumbar [spine] somewhat guarded secondary to pain, strength in upper and lower extremities [5/5], normal gait noted] Neurological: Speech clear, [dean of girls equal], no gross sensory deficit Assessment:: Degenerative disc disease lumbar spine with lumbar radiculopathy symptoms Plan:: We will continue the patien this month on oxycodone 10 mg 1 tablet p.o. 4 times daily and [place] 7.5 mg 1 tablet p.o. 4 times daily. He understands that he will need to follow-up with a physician at his next visit to discuss further plan of care. Patient is not open to injective therapy at this time, as he has tried injections in the past and he does not feel they give him any relief. He does report to be seeing physical therapy every month, [facility]. We will see him back in a month for reevaluation of symptoms and discuss further plan of care. Risks and benefits of the medication have been explained in detail to the patient. The patient has been advised to consult with his/her primary care provider and pharmacist regarding drug-drug interaction of medications currently prescribed. Patient has been prescribed a controlled substance after being counseled on the medication, medication safety, and possible side effects. TIANA report has been obtained and reviewed prior to prescription and found to be appropriate. Opioid contract was reviewed and signed by the patient, and that they have agreed to all of the terms set forth by our compliance program. Patient has been instructed to contact the clinic with any concerns before the next appointment. Dr. Blum has reviewed t
== END ==
PROVIDERS: Visit Provider Clinical Nurse Specialist Family Health
DX: M51.16 Intervertebral disc disorders with radiculopathy, lumbar region (principal)
CPT/HCPCS: 99212; G0463

== ENCOUNTER → 2020-11-10 10:42 | Outpatient (POV) | payer MEDICARE, OTHER, SELFPAY ==
[2020-11-10 11:01] VITALS: BP 166/99; PULSE 78; RESP 18; TEMP 36.8; O2SAT 97; BMI 32.5
--- NOTE | 2020-11-10 11:20 | P.CONS_ITS ---
[facility] Pain Management SOAP Note Subjective:: Patient is a 50-year-old white male who presents today for follow-up and medication refills. We have been treating him for degenerative disc disease with lumbar radiculopathy symptoms. He is currently being managed with oxycodone 10 mg 1 tablet p.o. 4 times a day and [place] 7.5 mg 1 tablet p.o. 4 alban es a day. He states that this is helping maintain his pain at a tolerable level in order for him to maintain functionality. Says that he is not able to perform his daily household tasks and ADLs as well as play with his grandchildren. He has previously undergone injection therapy at the [place] and states that he can send records to our clinic as well. He reports he did not get any pain relief with injection therapy. He is currently undergoing physical therapy with [facility] and is performing his daily home exercise program. He denies any adverse effects to the above medications and is requesting refills today. Objective:: General: Alert and oriented x3, no acute distress, pleasant and cooperative Lungs: Resps E/U, symmetric chest expansion Eyes: PERRL Musculoskeletal: limited flexion and extension of the lumbar spine secondary to pain. Deep tendon reflexes were normal in bilateral lower extremities. Motor exam was grossly intact in the bilateral lower extremities, antalgic gait noted. Neurological: Speech is clear, battery test engineer equal, no gross sensory deficits Assessment:: I discussed with the patient that we will continue to refill his oxycodone 10 mg 1 tablet p.o. 4 times a day and [place] 7.5 mg 1 tablet p.o. 4 times a day I discussed with him to continue physical therapy and his home exercise program. Is also taking clonazepam 1 mg #120 which is prescribed by Dr. Tyler. I reiterated to the patient the black box warning regarding respiratory depression associated with concomitant use of opioids and benzodiazepines. Verbalized understanding. He will also send records from the [place] where he underwent injection therapy in the past but unfortunately did not get any pain relief. He is not interested in any injection therapy at this time. [facility] #[id number] and previous drug screens were reviewed and appropriate. We will see him back in 1 month for follow-up and medication refills. [facility] History Medical History: Denies:: Diabetes Mellitus Type 1, Diabetes Mellitus Type 2 *Have you ever received a pneumonia vaccine?: No *Have you received a flu vaccine this season?: Yes Other Surgeries: Yes: Appendectomy, Hernia Repair Amputation: No Fractures: No - *Social History Smoking Status: Never smoker Alcohol Intake: never *Occupational Status:: disabled Housing: house *Travel in the last 8 weeks: None Family Hx:: Unable to obtain
== END ==
PROVIDERS: PCP Family Medicine; Visit Provider Anesthesiology Pain Medicine
DX: M51.16 Intervertebral disc disorders with radiculopathy, lumbar region (principal)
CPT/HCPCS: 99212; G0463

== ENCOUNTER → 2020-12-08 10:45 | Outpatient (POV) | payer MEDICARE, OTHER, SELFPAY ==
[2020-12-08 11:10] VITALS: BP 152/100; PULSE 79; RESP 20; TEMP 36.7; O2SAT 98; BMI 33.2
--- NOTE | 2020-12-08 11:34 | HMH.PAINSOAP ---
[facility] Pain Management SOAP Note Subjective:: This patient is a 50-year-old white male who has increasing pain in his joints low back hips and legs from previous [place] agent orange. He has been medically managed with oxycodone 10 mg 1 tablet 4 times a day and [place] 7.5 mg 4 times a day. He says that this helps some with ADLs and keeps his pain at a tolerable level. [facility] is [facility] had [facility]. Khoi and drug screen have all been appropriate [facility] [id number]. He is also on clonazepam. I have cautioned him against the interaction between benzodiazepines and opioids. He has been on this dose for several years. I have talked to him about incorporating some interventional therapy in order to reduce his opioid risk since he is on too short acting agents. We will refill his current regimen today. We will schedule him for bilateral SI joint injections to see if this may help with his pain symptoms so that we may decrease his opioid medication in order to reduce his risk. Objective:: Alert and oriented x3 no acute distress. Patient does have an antalgic gait. Motor strength of lower extremities is 5/5. There is no car sensory deficit. Tenderness over the bilateral SI joints. He does have positive Jere's test bilaterally. Is positive Tyson test bilaterally. Is positive SI joint compression test bilaterally. Is positive distraction test bilaterally. Assessment:: Sacroiliitis and degenerative disc disease of lumbar spine with lumbar radiculopathy symptoms with generalized pain and joint pain due to agent orange Plan:: We will seek approval and plan on bilateral SI joint injections under fluoroscopy. Today we will refill his oxycodone 10 mg 4 times a day [place] 7.5 mg 4 times a day. We will give a 1 month supply. At his next refill we will reduce him to 3 times a day due to the increased risk of benzodiazepines and opioids and the fact he is on too short acting agents. [facility] History Medical History: Denies:: Diabetes Mellitus Type 1, Diabetes Mellitus Type 2 *Have you ever received a pneumonia vaccine?: No *Have you received a flu vaccine this season?: No Other Surgeries: Yes: Appendectomy, Hernia Repair Amputation: No Fractures: No - *Social History Smoking Status: Never smoker Alcohol Intake: never *Occupational Status:: other Housing: house *Travel in the last 8 weeks: None Family Hx:: Unable to obtain
== END ==
PROVIDERS: PCP Family Medicine; Visit Provider Anesthesiology
DX: M46.1 Sacroiliitis, not elsewhere classified (principal); M51.16 Intervertebral disc disorders with radiculopathy, lumbar region; R52 Pain, unspecified
CPT/HCPCS: 99212; G0463

== ENCOUNTER → 2021-01-05 09:44 | Outpatient (POV) | payer MEDICARE, OTHER, SELFPAY ==
[2021-01-05 09:56] VITALS: BP 155/93; PULSE 82; RESP 18; TEMP 36.6; O2SAT 98; BMI 33.9
--- NOTE | 2021-01-05 10:36 | HMH.PAINSOAP ---
[facility] Pain Management SOAP Note Subjective:: Patient is a pleasant 50-year-old white male who has increasing pain in his joints, low back, hips and legs. He has been medically managed with oxycodone 10 mg 1 tablet 4 times a day [place] 7.5 mg 4 times a day. He has been also seen at the [facility] for pituitary surgery. He is also on clonazepam. With the risk of benzodiazepines and too short acting opioids I talked to him about reorganizing his medication regimen. He was scheduled for bilateral SI joint injections today. He does not want to do these injections today. However we will adjust his medications and take him completely off his [place] and increase his oxycodone to 10 mg 4-5 times daily. Objective:: Alert and oriented x3 no acute distress. Patient does have an antalgic gait. Motor strength of lower extremities is 5/5. There is no sensory deficit. Assessment:: Sacroiliitis and degenerative disc disease of lumbar spine with lumbar radiculopathy symptoms with generalized full body pain and joint pain Plan:: We will adjust his medication regimen to discontinue [place] and increase oxycodone to 10 mg 4-5 times daily. We will continue to monitor because of the risk of benzodiazepines and oral opioids. We will follow-up with him in 1 month. We will reevaluate his symptoms and make further adjustments at that time if needed. Currently Khoi and drug screen are all appropriate. [facility] History Medical History: Denies:: Cancer, Diabetes Mellitus Type 1, Diabetes Mellitus Type 2, MRSA, Seizures *Have you ever received a pneumonia vaccine?: No *Have you received a flu vaccine this season?: No Other Medical History: Denies: Blood Transfusion Reaction Other Surgeries: Yes: Appendectomy, Hernia Repair, Other (pituitary sx) Amputation: No Fractures: No - *Social History Smoking Status: Never smoker Alcohol Intake: never *Occupational Status:: disabled Housing: house *Travel in the last 8 weeks: None Family Hx:: Unable to obtain
== END ==
PROVIDERS: PCP Family Medicine; Visit Provider Anesthesiology
DX: M46.1 Sacroiliitis, not elsewhere classified (principal); M51.16 Intervertebral disc disorders with radiculopathy, lumbar region; R52 Pain, unspecified; M25.50 Pain in unspecified joint
CPT/HCPCS: 99212; G0463

== ENCOUNTER → 2021-02-05 11:05 | Outpatient (POV) | payer MEDICARE, OTHER, SELFPAY ==
[2021-02-05 11:32] VITALS: BP 161/90; PULSE 79; RESP 18; O2SAT 97; BMI 33.2
--- NOTE | 2021-02-05 11:59 | HMH.PAINSOAP ---
[facility] Pain Management SOAP Note Subjective:: Patient is a 50-year-old white male who presents today for medication refills. The patient does get oxycodone 10 mg 1 tablet p.o. 4-5 times daily. At last visit Dr. Blum did discuss taking the patient off of [place] and increase in his oxycodone. The patient was taking 2 short acting medications. The patient says that he does better taking oxycodone 5 times daily. He has been advised that Dr. Blum will make a determination if 5 times daily is an appropriate dosing for him. He says he has discussed this with Dr. Blum and Dr. Blum did feel it was appropriate to proceed with 5 times daily since he has stopped his [place]. He does get the medication for low back pain. The patient is also on clonazepam. Dr. Blum did have a discussion with risk of oversedation with these medications. He does rate his pain a 4 out of 10 today. He says that the pain is mainly in his low back he is also seen at the [facility] for pituitary issues. He does undergo injective therapy with our clinic today. He would like to transition to the [place] clinic. He says that this is a further drive for him. He says driving to [place] takes [address] At last visit, the patient was scheduled for an SI injection but declined at that time. Review of Systems General: No recent weight changes, no fever, no sleep disturbances Respiratory: No cough, no shortness of air, no recurring pulmonary infections Cardiovascular/peripheral vascular: No chest pain, no palpitations, no edema, no shortness of breath Gastrointestinal: No new onset incontinence, normal bowel movements reported Genitourinary: No new onset incontinence Musculoskeletal: Low back pain with radiation into bilateral lower extremities Psychiatric: [Normal mood/affect] Neurological: [Denies weakness in extremities], [denies balance issues] Objective:: Physical exam General: Alert and oriented x3, no acute distress, pleasant and cooperative Lungs: Respirations even and unlabored, symmetrical chest expansion Eyes: PERRL Musculoskeletal: Flexion and extension of lumbar [spine] somewhat guarded secondary to pain, [antalgic gait noted] Neurological: Speech clear, no gross sensory deficit Assessment:: Degenerative disc disease lumbar spine with lumbar radiculopathy symptoms Plan:: Patient will continue with oxycodone 10 mg 1 tablet p.o. 4-5 times daily as needed for pain. He will be transferred to the [facility], as this is less of a drop for the patient. He has been advised if he decides to return to our clinic to contact us for an upcoming appointment. Risks and benefits of the medication have been explained in detail to the patient. The patient does understand the risk of dependence on the medication when given over a prolonged period. Patient has been advised of risks of oversedation with the prescribed medication. Narcan has been offered to the paitent in the event of oversedation. Patient has been advised that a family member should also be educated regarding administration of Narcan. The patient has been advised to consult with his/her primary care provider and pharmacist regarding drug-drug interaction of medications currently prescribed. Patient has been prescribed a controlled substance after being counseled on the medication, medication safety, and possible side effects. TIANA report has been obtained and reviewed prior to prescription and found to be appropriate. Opioid contract was reviewed and signed by the patient, and that they have agreed to all of the terms set forth by our compliance program. Patient has been instructed to contact the clinic with any concerns before the next appointment. Dr. Blum has reviewed this note and agrees with this plan of care. This note was dictated using voice recognition software and make contain errors or omissions. [facility] History I have reviewed the patient's past medical histor
[2021-02-05 12:51] LABS: Amphetamine/Metha Screen,Urine Negative ng/ml (<1000); Benzodiazepines Screen,Urine Negative ng/ml (<200)
[2021-02-05 12:52] LABS: Barbiturates Screen,Urine Negative ng/ml (<200)
[2021-02-05 12:53] LABS: Cannabinoid Screen,Urine Negative ng/ml (<50); Cocaine Screen,Urine Negative ng/ml (<300)
[2021-02-05 12:54] LABS: Methadone Screen,Urine Negative ng/ml (<300); Opiate Screen,Urine Negative ng/ml (<300)
[2021-02-05 12:55] LABS: Phencyclidine Screen,Urine Negative ng/ml (<25)
[2021-02-15 18:09] LABS: Opiates Negative (Cutoff=100); Oxycodone (GC/MS) 913 ng/mL (Cutoff=100); Oxymorphone (GC/MS) >3000 ng/mL (Cutoff=100)
== END ==
PROVIDERS: Visit Provider Clinical Nurse Specialist Family Health
DX: M51.16 Intervertebral disc disorders with radiculopathy, lumbar region (principal); Z79.891 Long term (current) use of opiate analgesic
CPT/HCPCS: 80305; 80361; 80365; 99212; G0463; G0480